=== PATIENT | male | born 1985 | race African-American/Black ===

== ENCOUNTER 2018-04-16 06:59 | Emergency (ER) | payer OTHER ==
[~2018-04-16] VITALS: Ht 182.9 cm; Wt 90.7 kg
[~2018-04-16 06:59] MED LIST: FLEXERIL PO; MEDROLDOSEPACK PO; NORFLEX100 MG PO; TESSALON PERLE100 MG PO; TORADOL 10 MG T10 MG PO; TRAMADOL 50 MG50 MG PO; ZOFRAN ODT4 MG PO
[2018-04-16] MEDS ORDERED: BUTALB-APAP-CA1 EACH PO (08:15)
[2018-04-16] MEDS ORDERED: NAPROSYN500 MG PO (08:15)
[2018-04-16 09:00] VITALS: BP 112/60
== END 2018-04-16 09:00 | disposition home or self-care (01) ==
LOC: ER 06:59
DX: G44.209 Tension-type headache, unspecified, not intractable (principal); Z87.442 Personal history of urinary calculi

== ENCOUNTER 2019-09-15 12:49 | Emergency (ER) | payer OTHER ==
[~2019-09-15] VITALS: Ht 185.4 cm; Wt 95.3 kg
[~2019-09-15 12:49] MED LIST changes: +BUTALB-APAP-CA1 EACH PO; +NAPROSYN500 MG PO
[2019-09-15 12:54] VITALS: BP 121/81
== END 2019-09-15 13:52 | disposition home or self-care (01) ==
LOC: ER 12:49
PROVIDERS: Emergency Medicine
DX: Z20.2 Contact with and (suspected) exposure to infections with a predominantly sexual mode of transmission (principal); R10.9 Unspecified abdominal pain; Z87.442 Personal history of urinary calculi; Z79.899 Other long term (current) drug therapy

== ENCOUNTER 2019-11-13 13:47 | Emergency (ER) | payer OTHER ==
[~2019-11-13] VITALS: Ht 185.4 cm; Wt 90.7 kg
[2019-11-13 14:14] LABS: URINE BILIRUBIN NEGATIVE (Negative); URINE BLOOD 3+ (Negative); URINE COLOR YELLOW; URINE GLUCOSE-RANDOM* NEGATIVE (Negative); URINE KETONES NEGATIVE (Negative); URINE LEUKOCYTES-REFLEX TRACE (Negative); URINE NITRITE-REFLEX NEGATIVE (Negative); URINE PROTEIN (DIPSTICK) NEGATIVE (Negative); URINE SPECIFIC GRAVITY 1.015 (1.005-1.035); URINE UROBILINOGEN >= 8.0 E.U./dl (0.2-1.0)
[2019-11-13 14:15] LABS: URINE CLARITY HAZY
[2019-11-13 14:24] LABS: AMORPHOUS PHOSPHATES Moderate /LPF (None Seen); SQUAMOUS 0-3 Few /LPF (0-3)
[2019-11-13 14:25] LABS: BACTERIA-REFLEX 1-9 Few /HPF (None Seen); CASTS None Seen /LPF (None Seen); URINE WBC-REFLEX 0-5 Rare /HPF (0-5)
[2019-11-13] MEDS ORDERED: KEFLEX500 M1 PO (15:19)
[2019-11-13 15:56] VITALS: BP 132/94
== END 2019-11-13 16:00 | disposition home or self-care (01) ==
LOC: ER 13:47
PROVIDERS: Nurse Practitioner
DX: Z20.2 Contact with and (suspected) exposure to infections with a predominantly sexual mode of transmission (principal); R30.9 Painful micturition, unspecified; R30.0 Dysuria; Z87.442 Personal history of urinary calculi

== ENCOUNTER 2021-04-29 09:51 | Emergency (ER) | payer OTHER ==
[~2021-04-29] VITALS: Ht 185.4 cm; Wt 106.6 kg
[~2021-04-29 09:51] MED LIST changes: +KEFLEX500 M1 PO
[2021-04-29 09:56] VITALS: BP 143/93
[2021-04-29 10:10] LABS: URINE BILIRUBIN NEGATIVE (Negative); URINE BLOOD NEGATIVE (Negative); URINE CLARITY CLEAR; URINE COLOR YELLOW; URINE GLUCOSE-RANDOM* NEGATIVE (Negative); URINE KETONES NEGATIVE (Negative); URINE LEUKOCYTES-REFLEX NEGATIVE (Negative); URINE NITRITE-REFLEX NEGATIVE (Negative); URINE PROTEIN (DIPSTICK) NEGATIVE (Negative); URINE SPECIFIC GRAVITY 1.025 (1.005-1.035)
== END 2021-04-29 11:02 | disposition home or self-care (01) ==
LOC: ER 09:51
PROVIDERS: Student in an Organized Health Care Education/Training Program
DX: R30.0 Dysuria (principal)